=== PATIENT | female | born 1950 | race Caucasian/White ===

== ENCOUNTER → 2016-10-11 | Emergency (ER) | payer OTHER ==
[2016-10-11 13:08] VITALS: TEMP 97.5
--- NOTE | 2016-10-11 13:19 | EDPHY ---
H & P Stated Complaint: Dizziness/SOB/Tingling Time Seen by Provider: 10/11/16 13:19 - Personal History Current Tetanus Diphtheria and Acellular Pertussis (TDAP): Yes - Social History Smoking Status: Former smoker Constitutional: Initial Vital Signs Temperature (C) 36.4 C 10/11/16 13:04 Heart Rate 66 10/11/16 13:04 Respiratory Rate 18 10/11/16 13:04 Blood Pressure 127/67 H 10/11/16 13:04 O2 Sat (%) 99 10/11/16 13:04 O2 Delivery Mode Room Air Medical Decision Making ED Course/Re-evaluation: CHIEF COMPLAINT: Dizziness HISTORY OF PRESENT ILLNESS: The patient is a 65 y/o female arriving with her friends complaining of acute onset dizziness while at her dance class this afternoon. She describes performing head rolls in class and then got immediately dizzy. Her dizziness did not improve when lying down and she was unable to drive herself home. She began to feel anxious and developed tingling and numbness in both hands with associated nausea. She notes some mild shortness of breath that has since resolved. Her dizziness is still present upon arrival in the ED and aggravated by moving her head. The dizziness is alleviated slightly by sitting still. She denies any other symptoms including weakness, paresthesias, vision changes, difficulty with speech, headache. REVIEW OF SYSTEMS: A 10 point review of systems was performed and is negative with the exception of the elements mentioned in the history of present illness. PHYSICAL EXAM: HR, BP, O2 Sat, RR. Temp noted General Appearance: Alert, well hydrated, appropriate, and non-toxic appearing. Head: Atraumatic without scalp tenderness or obvious injury Eyes: Pupils equal, round, reactive to light and accommodation, EOMI, no trauma , no injection. Ears: Clear bilaterally, no perforation, normal landmarks Nose: Atraumatic, no rhinorrhea, clear. Throat: mucus membranes moist. Neck: Supple, nontender, no lymphadenopathy. Respiratory: No retractions, no distress, no wheezes, and no accessory muscle use. Lungs are clear to auscultation bilaterally. Cardiovascular: Regular rate and rhythm, no murmurs, rubs, or gallops. Good capillary refill all extremities. Gastrointestinal: Abdomen is soft, nontender, non-distended, no masses, no rebound, no guarding, no peritoneal signs. Musculoskeletal: Normal active ROM of all extremities, atraumatic. Neurological: Alert, appropriate, and interactive. The patient has normal DTRs and non-focal cranial nerves, motor, sensory, and cerebellar exam. Nystagmus when turning head to the right. Symmetric face. No pronator drift. Normal 5/5 strength in all extremities. Normal [id number]. Skin: No rashes, good turgor, no nodules on palpation. Past medical history: Denies Past surgical history: Denies Family history: noncontributory Social history: Friends at bedside DIFFERENTIAL DIAGNOSIS: The differential diagnosis for the patient's dizziness included but was not limited to peripheral and central causes of vertigo, orthostatic causes including dehydration, cardiogenic and neurogenic causes, and blood loss. MEDICAL DECISION MAKING: This is a healthy 65 y/o female who presents with acute onset dizziness after moving her "rolling" her head during a dance class today. Her dizziness is aggravated by movement and alleviated slightly when sitting still. On exam, she has horizontal nystagmus when lying flat with her head turned to the right. Her neuro exam is otherwise completely normal. There is no evidence of any deficits and her story and presentation not consistent with stroke or TIA. The brief tingling in her hands and dyspnea sound apprenticeship training representative of hyperventilation. Her dizziness is most likely caused by positional vertigo. We discussed the risk and benefits of imaging, but due to her largely normal exam, improvement of symptoms when still, and lack of headache or trauma we mutually decided against a head CT. She also declined Meclizine as she wants to use homeopathy when she returns home. I've given her Meclizine instructions should she decide to use it and a referral to ENT for persistent symptoms. We discussed return precautions. She expresses agreement and understanding with the discharge plan. Departure - Departure Disposition: Home, Routine, Self-Care Clinical Impression: Benign paroxysmal positional vertigo Qualifiers: Laterality: right Qualified Code(s): H81.11 - Benign paroxysmal vertigo, right ear Condition: Good Instructions: Meclizine (By mouth), Benign Paroxysmal Positional Vertigo (ED) Additional Instructions: 1. You can try the Louis maneuver for symptoms. It may make you more dizzy. 2. You can use 25mg Meclizine, available [id number], if needed for symptoms. 3. Follow up with an ENT for symptoms not improved by Friday. 4. Return to the ED for severe headache, weakness or numbness on one side of your body, or other worsening of condition. Referrals: Abdi Lucio MD [Medical Doctor] - As per Instructions Report Scribed for: Ovidio Lopez Report Scribed by: Sully Strickland Date of Report: 10/11/16 Time of Report: 13:33
[2016-10-11 14:02] VITALS: BP 112/73; PULSE 58; RESP 14; O2SAT 97
== END | disposition home or self-care (01) ==
DX: H81.11 Benign paroxysmal vertigo, right ear (principal); Z87.891 Personal history of nicotine dependence